=== PATIENT | male | born 1960 | race Two or more races ===

== ENCOUNTER 2022-07-24 07:38 | Outpatient (CLI) | payer OTHER ==
[~2022-07-24 07:38] MED LIST: ATENOLOL100 MG PO; BENICAR40 MG PO; CARDURA8 MG PO; PRILOSEC20 MG PO
== END 2022-07-24 11:43 | disposition home or self-care (01) ==
LOC: TOM 07:38
PROVIDERS: ATTEND Urology
DX: R31.21 Asymptomatic microscopic hematuria (principal)

== ENCOUNTER 2022-08-11 06:43 | Outpatient (CLI) | payer OTHER | END 2022-08-11 06:47 | disposition home or self-care (01) | LOC: LAB 06:43 | DX: E78.00 Pure hypercholesterolemia, unspecified (principal); I10 Essential (primary) hypertension; E11.9 Type 2 diabetes mellitus without complications; E03.9 Hypothyroidism, unspecified ==

== ENCOUNTER → 2024-01-29 09:46 | Outpatient (CLI) | payer OTHER ==
[2024-01-29 10:48] LABS: HEMATOCRIT 43.2 % (39.0-48.0); HEMOGLOBIN 14.6 g/dL (13-16.00); MEAN CELL VOLUME 83.1 fL (80.0-100.00); MEAN CORPUSCULAR HEMOGLOBIN 28.1 pg (27.00-32.0); MEAN CORPUSCULAR HGB CONC 33.8 g/dl (32.0-36.0); PLATELET COUNT 189 K/uL (150-450); RED BLOOD COUNT 5.19 M/uL (4.00-6.00); RED CELL DISTRIBUTION WIDTH 14.5 % (11.5-14.5)
[2024-01-29 11:17] LABS: ALBUMIN 3.9 gm/dL (3.4-5.0); BILIRUBIN TOTAL 0.89 mg/dL (0.3-1.2); CALCIUM 9.2 mg/dL (8.5-10.1); CHOL HDL RATIO 3.7 (0-5.0); CREATININE SERUM 1.46 mg/dL (0.70-1.30); GFR 49.08; GLOBULINA 3.8 G/DL (2.4-3.5); POTASSIUM 3.45 mEq/L (3.5-5.1); TOTAL PROTEIN 7.7 gm/dL (6.4-8.2); TSH 1.93 uIU/mL (0.358-3.74)
== END | disposition home or self-care (01) ==
LOC: LAB 09:46
PROVIDERS: ATTEND Internal Medicine
DX: E78.00 Pure hypercholesterolemia, unspecified (principal); D64.9 Anemia, unspecified; E03.9 Hypothyroidism, unspecified; I10 Essential (primary) hypertension

== ENCOUNTER → 2024-06-15 13:20 | Outpatient (CLI) | payer OTHER ==
[2024-06-15 14:19] LABS: PH,URINE 5.5 (5.0-8.0); URINE APPEARANCE Clear; URINE BILIRRUBIN Negative (NEGATIVE); URINE BLOOD Negative; URINE COLOR Yellow; URINE GLUCOSE Negative (NEGATIVE); URINE LEUKOCYTE Negative; URINE NITRATE Negative; URINE PROTEIN 30 (NEGATIVE)
[2024-06-15 14:22] LABS: URINE EPITHELIAL CELLS 5.8 uL (0.0-38.8); URINE RBC 3.3 uL (0.0-20.8); URINE WBC 4.1 uL (0.0-23.2)
== END | disposition home or self-care (01) ==
LOC: LAB 13:20
DX: N39.0 Urinary tract infection, site not specified (principal)

== ENCOUNTER → 2024-07-01 09:00 | Outpatient (CLI) | payer OTHER ==
[2024-07-01 09:28] LABS: MEAN CELL VOLUME 81.2 fL (80.0-100.00); MEAN CORPUSCULAR HEMOGLOBIN 27.8 pg (27.00-32.0); MEAN CORPUSCULAR HGB CONC 34.2 g/dl (32.0-36.0); PLATELET COUNT 182 K/uL (150-450); RED BLOOD COUNT 4.68 M/uL (4.00-6.00); RED CELL DISTRIBUTION WIDTH 14.4 % (11.5-14.5)
[2024-07-01 10:41] LABS: ALBUMIN 3.8 gm/dL (3.4-5.0); BILIRUBIN TOTAL 0.71 mg/dL (0.3-1.2); CALCIUM 9.1 mg/dL (8.5-10.1); CHOL HDL RATIO 4.2 (0-5.0); CREATININE SERUM 1.5 mg/dL (0.70-1.30); GFR 47.42; GLOBULINA 3.9 G/DL (2.4-3.5); POTASSIUM 3.44 mEq/L (3.5-5.1); PROSTATIC SPECIFIC ANTIGEN 0.595 NG/ML (0.010-4.00); TOTAL PROTEIN 7.7 gm/dL (6.4-8.2); TSH 2.64 uIU/mL (0.358-3.74)
== END | disposition home or self-care (01) ==
LOC: LAB 09:00
PROVIDERS: ATTEND Acupuncturist
DX: E55.9 Vitamin D deficiency, unspecified (principal); D64.9 Anemia, unspecified; Z12.12 Encounter for screening for malignant neoplasm of rectum; I11.9 Hypertensive heart disease without heart failure; E11.9 Type 2 diabetes mellitus without complications; N39.0 Urinary tract infection, site not specified; R19.5 Other fecal abnormalities

== ENCOUNTER → 2024-07-07 12:03 | Outpatient (CLI) | payer OTHER ==
[2024-07-07 13:16] LABS: ob NEGATIVE (NEGATIVE)
== END | disposition home or self-care (01) ==
LOC: LAB 12:03
DX: E55.9 Vitamin D deficiency, unspecified (principal); D64.9 Anemia, unspecified; E11.9 Type 2 diabetes mellitus without complications; N39.0 Urinary tract infection, site not specified

== ENCOUNTER → 2024-10-14 09:10 | Outpatient (CLI) | payer OTHER ==
[2024-10-14 09:45] LABS: HEMATOCRIT 42.8 % (39.0-48.0); HEMOGLOBIN 14.2 g/dL (13-16.00); MEAN CELL VOLUME 82.5 fL (80.0-100.00); MEAN CORPUSCULAR HEMOGLOBIN 27.4 pg (27.00-32.0); MEAN CORPUSCULAR HGB CONC 33.3 g/dl (32.0-36.0); PLATELET COUNT 204 K/uL (150-450); RED BLOOD COUNT 5.19 M/uL (4.00-6.00); RED CELL DISTRIBUTION WIDTH 14.2 % (11.5-14.5)
[2024-10-14 09:48] LABS: PH,URINE 5.5 (5.0-8.0); URINE APPEARANCE Clear; URINE BILIRRUBIN Negative (NEGATIVE); URINE BLOOD Negative; URINE COLOR Yellow; URINE GLUCOSE Negative (NEGATIVE); URINE KETONE Trace (NEGATIVE); URINE LEUKOCYTE Negative; URINE NITRATE Negative; URINE PROTEIN 30 (NEGATIVE)
[2024-10-14 09:49] LABS: URINE BACTERIA 7.5 uL (0.0-1933); URINE CAST 3.35 uL (0.0-1.40); URINE EPITHELIAL CELLS 5.8 uL (0.0-38.8); URINE RBC 3.2 uL (0.0-20.8); URINE WBC 6.1 uL (0.0-23.2)
[2024-10-14 10:22] LABS: CALCIUM 9.2 mg/dL (8.5-10.1); CREATININE SERUM 1.77 mg/dL (0.70-1.30); GFR 39.18; POTASSIUM 3.36 mEq/L (3.5-5.1)
== END | disposition home or self-care (01) ==
LOC: LAB 09:10
DX: E11.9 Type 2 diabetes mellitus without complications (principal); N39.0 Urinary tract infection, site not specified; D64.9 Anemia, unspecified; I11.9 Hypertensive heart disease without heart failure

== ENCOUNTER 2025-02-23 09:02 | Outpatient (CLI) | payer OTHER ==
[2025-02-23 10:14] LABS: PH,URINE 5.5 (5.0-8.0); URINE APPEARANCE Clear; URINE BILIRRUBIN Negative (NEGATIVE); URINE BLOOD Negative; URINE COLOR Dark Yellow; URINE GLUCOSE Negative (NEGATIVE); URINE KETONE Negative (NEGATIVE); URINE LEUKOCYTE Negative; URINE NITRATE Negative
[2025-02-23 10:17] LABS: HEMOGLOBIN 14.7 g/dL (13-16.00); MEAN CELL VOLUME 82.5 fL (80.0-100.00); MEAN CORPUSCULAR HEMOGLOBIN 27.6 pg (27.00-32.0); MEAN CORPUSCULAR HGB CONC 33.4 g/dl (32.0-36.0); PLATELET COUNT 185 K/uL (150-450); RED BLOOD COUNT 5.34 M/uL (4.00-6.00); RED CELL DISTRIBUTION WIDTH 13.5 % (11.5-14.5)
[2025-02-23 10:19] LABS: URINE BACTERIA 15.9 uL (0.0-1933); URINE CAST 2.35 uL (0.0-1.40); URINE EPITHELIAL CELLS 3.6 uL (0.0-38.8); URINE RBC 6.4 uL (0.0-20.8); URINE WBC 8.8 uL (0.0-23.2)
[2025-02-23 11:17] LABS: URINE PROTEIN 100 (NEGATIVE)
[2025-02-23 11:36] LABS: ALBUMIN 3.7 gm/dL (3.4-5.0); BILIRUBIN TOTAL 1.03 mg/dL (0.3-1.2); CALCIUM 9.4 mg/dL (8.5-10.1); CHOL HDL RATIO 4.2 (0-5.0); CREATININE SERUM 2.29 mg/dL (0.70-1.30); GFR 29.1; GLOBULINA 4.2 G/DL (2.4-3.5); POTASSIUM 3.08 mEq/L (3.5-5.1); PROSTATIC SPECIFIC ANTIGEN 0.9 NG/ML (0.010-4.00); TOTAL PROTEIN 7.9 gm/dL (6.4-8.2); TSH 2.13 uIU/mL (0.358-3.74)
== END 2025-02-23 09:11 | disposition home or self-care (01) ==
LOC: LAB 09:02
DX: D64.9 Anemia, unspecified (principal); N39.0 Urinary tract infection, site not specified; I11.9 Hypertensive heart disease without heart failure; E11.9 Type 2 diabetes mellitus without complications; E03.8 Other specified hypothyroidism; E78.00 Pure hypercholesterolemia, unspecified

== ENCOUNTER 2025-02-23 10:21 | Outpatient (CLI) | payer OTHER | END 2025-02-23 10:24 | disposition home or self-care (01) | LOC: TOM 10:21 | PROVIDERS: ATTEND Acupuncturist | DX: R10.9 Unspecified abdominal pain (principal); R10.2 Pelvic and perineal pain ==

== ENCOUNTER → 2025-03-06 12:44 | Outpatient (CLI) | payer OTHER ==
[2025-03-06 13:54] LABS: URINE APPEARANCE Clear; URINE BILIRRUBIN Negative (NEGATIVE); URINE BLOOD Negative; URINE COLOR Yellow; URINE KETONE Negative (NEGATIVE); URINE LEUKOCYTE Negative; URINE NITRATE Negative
[2025-03-06 13:58] LABS: URINE BACTERIA 14.6 uL (0.0-1933); URINE EPITHELIAL CELLS 2.6 uL (0.0-38.8); URINE RBC 7.6 uL (0.0-20.8); URINE WBC 4.4 uL (0.0-23.2)
[2025-03-06 14:07] LABS: URINE CAST 0.44 uL (0.0-1.40); URINE GLUCOSE 100 MG/DL (NEGATIVE); URINE PROTEIN 100 (NEGATIVE)
== END | disposition home or self-care (01) ==
LOC: LAB 12:44
PROVIDERS: ATTEND Urology
DX: R31.21 Asymptomatic microscopic hematuria (principal)

== ENCOUNTER 2025-03-31 10:19 | Outpatient (CLI) | payer OTHER | END 2025-03-31 10:20 | disposition home or self-care (01) | LOC: LAB 10:19 | PROVIDERS: ATTEND Urology | DX: N40.0 Benign prostatic hyperplasia without lower urinary tract symptoms (principal); R31.21 Asymptomatic microscopic hematuria ==

== ENCOUNTER 2025-03-31 10:40 | Outpatient (CLI) | payer OTHER | END 2025-03-31 10:43 | disposition home or self-care (01) | LOC: RAD 10:40 | PROVIDERS: ATTEND Urology | DX: N40.0 Benign prostatic hyperplasia without lower urinary tract symptoms (principal); R31.21 Asymptomatic microscopic hematuria ==

== ENCOUNTER → 2025-05-01 | Outpatient (CLI) | payer OTHER | END | disposition home or self-care (01) | LOC: SONOGRAMA 13:58 | DX: N18.9 Chronic kidney disease, unspecified (principal); I10 Essential (primary) hypertension ==

== ENCOUNTER → 2025-05-03 09:41 | Outpatient (CLI) | payer OTHER ==
[2025-05-03 14:12] LABS: CREATININE URINE 61.4 MG/DL; URINE PROT QUANT 24HR 14.6 MG/DL
[2025-05-03 14:13] LABS: CREATINE CLEARANCE 68.2 ML/MIN (97-137); CREATININE SERUM 1.88 mg/dL (0.8-1.3)
== END | disposition home or self-care (01) ==
LOC: LAB 09:41
DX: N18.9 Chronic kidney disease, unspecified (principal); I10 Essential (primary) hypertension

== ENCOUNTER 2025-06-22 10:26 | Outpatient (CLI) | payer OTHER ==
[2025-06-22 12:03] LABS: URINE APPEARANCE Clear; URINE BILIRRUBIN Negative (NEGATIVE); URINE BLOOD Negative; URINE COLOR Yellow; URINE KETONE Negative (NEGATIVE); URINE LEUKOCYTE Negative; URINE NITRATE Negative; URINE PROTEIN 30 (NEGATIVE); URINE UROBILINOGEN 0.2 E.U./dl
[2025-06-22 12:08] LABS: BASO % 0.5 % (0.1-1.2); EOS # 0.17 (0.04-0.54); EOS % 1.6 % (0.7-7.0); LYMPH # 1.71 (1.18-3.74); LYMPH % 16.0 % (19.3-53.1); MEAN PLATELET VOLUME 11.20 fl (9.4-12.4); MONO # 0.83 (0.24-0.82); MONO % 7.7 % (4.7-12.5); NEUT # 7.93 (1.56-6.13); NEUT % 73.9 % (34.0-71.1); RED CELL DISTRIBUTION WIDTH 13.8 % (11.6-14.4)
[2025-06-22 12:09] LABS: URINE BACTERIA 67.1 uL (0.0-1933); URINE EPITHELIAL CELLS 4.6 uL (0.0-38.8); URINE WBC 3.3 uL (0.0-23.2)
[2025-06-22 12:42] LABS: URINE CAST 0.73 uL (0.0-1.40); URINE GLUCOSE 100 MG/DL (NEGATIVE); URINE RBC 1.4 uL (0.0-20.8)
[2025-06-22 13:13] LABS: ALT/SGPT 31.0 U/L (12-78); AST/SGOT 17.0 U/L (15-37); BILIRUBIN TOTAL 0.99 mg/dL (0.3-1.2); BUN CREA RATIO 13.0 (7.0-25.0); CREATININE SERUM 2.47 mg/dL (0.70-1.30); GFR 26.58; GLOBULINA 4.0 G/DL (2.4-3.5); GLUCOSE FASTING 85.0 mg/dL (65-100); OSMOLALITY SERUM 295.0 MOSM/KG (275-295)
[2025-06-24 17:08] LABS: albu 36.2 % (.); alph 2 11.7 % (.); gam 28.4 % (.); m spi 0 % (Not Observed)
[2025-06-26 19:07] LABS: a:g ratio 1.1 (0.7-1.7); alpha 1 g 0.2 g/dL (0.0-0.4); beta g 1.4 g/dL (0.7-1.3); gamma g 1.4 g/dL (0.4-1.8); globulin t 3.7 g/dL (2.2-3.9); prot total 7.9 g/dL (6.0-8.5)
== END 2025-06-22 10:32 | disposition home or self-care (01) ==
LOC: LAB 10:26
DX: N18.30 Chronic kidney disease, stage 3 unspecified (principal); D63.1 Anemia in chronic kidney disease; R80.9 Proteinuria, unspecified; I12.9 Hypertensive chronic kidney disease with stage 1 through stage 4 chronic kidney disease, or unspecified chronic kidney disease

== ENCOUNTER 2025-07-06 10:25 | Outpatient (CLI) | payer OTHER | END 2025-07-06 10:33 | disposition home or self-care (01) | LOC: RAD 10:25 | PROVIDERS: ATTEND Internal Medicine | DX: M06.1 Adult-onset Still's disease (principal); M19.90 Unspecified osteoarthritis, unspecified site; M25.561 Pain in right knee; M25.562 Pain in left knee ==

== ENCOUNTER → 2025-10-09 10:45 | Outpatient (CLI) | payer OTHER ==
[2025-10-09 12:47] LABS: BASO % 0.4 % (0.1-1.2); EOS # 0.26 (0.04-0.54); EOS % 3.3 % (0.7-7.0); LYMPH # 1.63 (1.18-3.74); LYMPH % 21.0 % (19.3-53.1); MEAN PLATELET VOLUME 10.90 fl (9.4-12.4); MONO # 0.69 (0.24-0.82); MONO % 8.9 % (4.7-12.5); NEUT # 5.14 (1.56-6.13); NEUT % 66.1 % (34.0-71.1); RED CELL DISTRIBUTION WIDTH 14.2 % (11.6-14.4)
[2025-10-09 12:58] LABS: URINE APPEARANCE Clear; URINE BILIRRUBIN Negative (NEGATIVE); URINE BLOOD Trace; URINE COLOR Yellow; URINE KETONE Negative (NEGATIVE); URINE LEUKOCYTE Negative; URINE NITRATE Negative; URINE UROBILINOGEN 0.2 E.U./dl
[2025-10-09 13:03] LABS: URINE BACTERIA 7.1 uL (0.0-1933); URINE EPITHELIAL CELLS 2.6 uL (0.0-38.8); URINE RBC 3.8 uL (0.0-20.8); URINE WBC 2.1 uL (0.0-23.2)
[2025-10-09 13:08] LABS: URINE CAST 0.00 uL (0.0-1.40); URINE GLUCOSE 250 MG/DL (NEGATIVE); URINE PROTEIN 100 (NEGATIVE)
[2025-10-09 13:42] LABS: BUN CREA RATIO 14.0 (7.0-25.0); CREATININE SERUM 1.99 mg/dL (0.70-1.30); GFR 34.11; GLUCOSE FASTING 90.0 mg/dL (65-100); OSMOLALITY SERUM 290.0 MOSM/KG (275-295)
== END | disposition home or self-care (01) ==
LOC: LAB 10:45
DX: N18.4 Chronic kidney disease, stage 4 (severe) (principal); D63.1 Anemia in chronic kidney disease; R80.9 Proteinuria, unspecified

== ENCOUNTER → 2025-10-20 | Outpatient (CLI) | payer OTHER | END | disposition home or self-care (01) | LOC: RAD 10:28 | DX: M75.101 Unspecified rotator cuff tear or rupture of right shoulder, not specified as traumatic (principal); M75.102 Unspecified rotator cuff tear or rupture of left shoulder, not specified as traumatic ==